=== PATIENT | female | born 1980 | race African-American/Black ===

== ENCOUNTER 2017-01-20 00:31 | Emergency (ER) | payer SELFPAY ==
[~2017-01-20] VITALS: Ht 157.5 cm; Wt 85.0 kg
[~2017-01-20 00:31] MED LIST: BACLOFEN10 MG PO; ENDOCET 5-3251 EACH PO; Feosol PO; IBUPROFEN800 MG PO; IRON325 MG PO; KEFLEX500 MG PO; LORTAB 5-325 M1 EACH PO; MOTRIN600 MG PO; Macrobid PO; Motrin PO; PERCOCET 5/31 TABLET PO; PRENATAL TABLE1 EAC3 PO; REGLAN5 MG PO
[2017-01-20] MEDS ORDERED: VALIUM2 MG PO (01:18)
[2017-01-20 01:37] VITALS: BP 151/96
== END 2017-01-20 01:37 | disposition home or self-care (01) ==
LOC: EME 00:31 → RME 00:31
DX: M62.838 Other muscle spasm (principal)
CPT/HCPCS: 73030; 99281; 99283

== ENCOUNTER 2017-05-09 18:50 | Emergency (ER) | payer OTHER ==
[~2017-05-09] VITALS: Ht 157.5 cm; Wt 84.6 kg
[~2017-05-09 18:50] MED LIST changes: +VALIUM2 MG PO
[2017-05-09 23:35] LABS: MCH 26.2 PG (29.0-34.0); MCHC 31.6 G/DL (30.0-36.0); PLATELET COUNT 209 K/uL (156-360); RBC DIS.WIDTH-CV 12.6 % (11.8-14.6); RBC DIS.WIDTH-SD 38.3 % (39-53); RED BLOOD COUNT 4.58 M/uL (3.80-5.20)
[2017-05-09 23:45] LABS: CHLORIDE 104 mEq/L (99-109); POTASSIUM 3.5 mEq/L (3.7-5.4); SODIUM 137 mEq/L (136-147)
[2017-05-09 23:47] LABS: GLUCOSE 106 mg/dL (70-99)
[2017-05-09 23:51] LABS: CREATININE 0.7 mg/dL (0.6-1.3); GFR ESTIMATE (CALCULATED) > 59 mL/min/
[2017-05-09 23:52] LABS: UREA NITROGEN (BUN) 8 mg/dL (9-23)
[2017-05-10] MEDS ORDERED: FLEXERIL10 MG PO (01:13)
[2017-05-10] MEDS ORDERED: NAPROSYN500 MG PO (01:13)
[2017-05-10 01:55] VITALS: BP 119/80
== END 2017-05-10 01:55 | disposition home or self-care (01) ==
LOC: EME 18:50
PROVIDERS: Physician Assistant
DX: S20.212A Contusion of left front wall of thorax, initial encounter (principal); S30.1XXA Contusion of abdominal wall, initial encounter; M62.838 Other muscle spasm; M54.2 Cervicalgia; V43.53XA Car driver injured in collision with pick-up truck in traffic accident, initial encounter; Y92.410 Unspecified street and highway as the place of occurrence of the external cause
CPT/HCPCS: 71046; 72125; 74177; 80048; 85027; 93005; 99281; 99284